=== PATIENT | male | born 1955 | race Caucasian/White ===

== ENCOUNTER → 2020-11-17 14:38 | Outpatient (BNVA) | payer MEDICARE, SELFPAY | PROVIDERS: PCP Nurse Practitioner Family; Visit Provider Hospitalist | DX: J41.8 Mixed simple and mucopurulent chronic bronchitis (principal); R91.8 Other nonspecific abnormal finding of lung field; J96.12 Chronic respiratory failure with hypercapnia | CPT/HCPCS: 99212 ==

== ENCOUNTER 2020-12-01 12:53 | Outpatient (REF) | payer MEDICARE, SELFPAY | END 2020-12-01 12:54 | disposition home or self-care (01) | LOC: HO.LAB 12:53 | PROVIDERS: Visit Provider Internal Medicine | DX: Z20.822 Contact with and (suspected) exposure to COVID-19 (principal) | CPT/HCPCS: 36415; C9803; U0003 ==

== ENCOUNTER 2021-02-05 15:18 | Outpatient (REF) | payer MEDICARE, SELFPAY ==
--- NOTE | ~2021-02-05 | CT_ITS ---
EXAMINATION: CT CHEST WITHOUT CONTRAST CLINICAL INFORMATION: Other nonspecific abnormal finding lung field COMPARISON: None TECHNIQUE: Multidetector volumetric CT imaging of the chest was done. Axial MIP volume rendering provided. Sagittal and coronal reformatted images were obtained. This CT examination was performed using dose optimization techniques as appropriate, variously including the following: *Automated exposure control *Adjustment of mA and/or kV according to patient size (this includes techniques or standardized protocols for targeted exams where dose is matched to indication/reason for exam; i.e. 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 LUNGS: There is evidence of emphysema. There is a pleural parenchymal scarring seen in the posterior segment of the right upper lobe axial image 123 series 7. There are scattered areas of bronchial wall thickening and increased peribronchial attenuation predominantly in the upper lobes suggestive of airways disease. There is a 3 mm calcified superior segment right lower lobe nodule axial image 301 series 7. There is a 3 mm noncalcified right lower lobe nodule axial image 407 series 7. MEDIASTINUM: There is coronary artery calcification. The mediastinum is otherwise normal. PLEURA: There is no pleural effusion. No pleural mass or thickening. AXILLA: No lymphadenopathy. UPPER ABDOMEN: There are small bilateral renal stones. OSSEOUS STRUCTURES: There are degenerative changes CT/CT chest wo con IMPRESSION: Emphysema. Small bilateral pulmonary nodules. Mild airways disease. Coronary artery calcification. Bilateral renal stones.
== END 2021-02-05 15:19 | disposition home or self-care (01) ==
LOC: HO.CT 15:18
PROVIDERS: PCP Nurse Practitioner Family; Visit Provider Hospitalist
DX: R91.8 Other nonspecific abnormal finding of lung field (principal)
CPT/HCPCS: 71250

== ENCOUNTER → 2021-06-12 15:39 | Outpatient (BNVA) | payer MEDICARE, SELFPAY | PROVIDERS: PCP Nurse Practitioner Family; Visit Provider Hospitalist | DX: J41.8 Mixed simple and mucopurulent chronic bronchitis (principal); J96.12 Chronic respiratory failure with hypercapnia; R91.8 Other nonspecific abnormal finding of lung field | CPT/HCPCS: 99212 ==

== ENCOUNTER → 2022-03-20 10:18 | Outpatient (BNVA) | payer MEDICARE, SELFPAY | PROVIDERS: PCP Nurse Practitioner Family; Visit Provider Hospitalist | DX: R91.8 Other nonspecific abnormal finding of lung field (principal); J96.12 Chronic respiratory failure with hypercapnia | CPT/HCPCS: 94618; 99212 ==

== ENCOUNTER 2022-05-03 06:55 | Outpatient (REF) | payer MEDICARE, SELFPAY ==
--- NOTE | ~2022-05-03 | CT_ITS ---
EXAMINATION: CT CHEST WITHOUT CONTRAST CLINICAL INFORMATION: Follow-up pulmonary nodules. COMPARISON: 02/05/2021 TECHNIQUE: Multidetector volumetric CT imaging of the chest was done. Axial MIP volume rendering provided. Sagittal and coronal reformatted images were obtained. This CT examination was performed using dose optimization techniques as appropriate, variously including the following: *Automated exposure control. *Adjustment of mA and/or kV according to patient size (this includes techniques or standardized protocols for targeted exams where dose is matched to indication/reason for exam; i.e. extremities or head). *Use of iterative reconstruction technique. DLP: 107 mGy-cm FINDINGS: LUNGS: Central airways are patent. There are mild regions of bronchial wall thickening seen centrally. No bronchiectasis is seen. Mild changes of centrilobular and paraseptal emphysema are seen bilaterally. No confluent airspace disease. There are a few scattered sub-4 mm densities present such as a 3 mm noncalcified density within the right upper lobe anteriorly on image 127 of 570 in series #7. There is a calcified granuloma seen within the right lower lobe. This is stable. Within the right lower lobe, there is a 5 mm noncalcified nodule seen on image 265 of 570. This is stable. There is a 4 mm noncalcified density seen adjacent to the right mediastinum on image 192 of 570. This is stable. There is a 5 mm noncalcified density seen within the left lower lobe on image 454 of 570. Not definitely seen on previous study but which has a linear appearance rather than nodular. MEDIASTINUM: Heart normal size. Coronary artery calcification present. No pericardial effusion. No thoracic aortic aneurysm. There is thoracic aortic arch calcified plaque present most prominent at the origin of the left subclavian artery. No mediastinal or hilar lymphadenopathy appreciated. PLEURA: There is no pleural effusion. No pleural mass or thickening. AXILLA: No lymphadenopathy. No chest wall abnormality appreciated. UPPER ABDOMEN: There is bilateral nephrolithiasis. OSSEOUS STRUCTURES: Subchondral cyst formation is seen involving the right glenoid. No suspicious-appearing destructive bony lesions identified. CT/CT chest wo con IMPRESSION: 1. Essentially stable appearance compared to study of 02/05/2021 other than for a small density within the left lower lung which has a linear appearance and not of a rounded nodule. 2. Old granulomatous disease. 3. Bilateral nephrolithiasis. According to the UPDATED 2017 Fleischner Society recommendations, the advised follow-up imaging for solid nodules < 6 mm is: LOW RISK PATIENT: No routine follow-up. HIGH RISK PATIENT: Optional CT at 12 months.
== END 2022-05-03 06:56 | disposition home or self-care (01) ==
LOC: HO.CT 06:55
PROVIDERS: Visit Provider Hospitalist
DX: R91.8 Other nonspecific abnormal finding of lung field (principal)
CPT/HCPCS: 71250

== ENCOUNTER → 2022-06-28 08:46 | Outpatient (BNVA) | payer MEDICARE, SELFPAY | PROVIDERS: PCP Nurse Practitioner Family; Visit Provider Hospitalist | DX: J41.8 Mixed simple and mucopurulent chronic bronchitis (principal); R91.8 Other nonspecific abnormal finding of lung field; J96.12 Chronic respiratory failure with hypercapnia | CPT/HCPCS: 99212 ==

== ENCOUNTER → 2023-01-03 08:35 | Outpatient (BNVA) | payer MEDICARE, SELFPAY | PROVIDERS: PCP Nurse Practitioner Family; Visit Provider Hospitalist | DX: J41.8 Mixed simple and mucopurulent chronic bronchitis (principal); R91.8 Other nonspecific abnormal finding of lung field; J96.12 Chronic respiratory failure with hypercapnia | CPT/HCPCS: 99212 ==

== ENCOUNTER 2023-09-24 14:56 | Outpatient (REF) | payer MEDICARE, SELFPAY ==
--- NOTE | ~2023-09-24 | CT_ITS ---
EXAMINATION: CT CHEST WITHOUT CONTRAST CLINICAL INFORMATION: Pulmonary nodules COMPARISON: 05/03/2022, 12/07/2020 TECHNIQUE: Multidetector volumetric CT imaging of the chest was done. Axial MIP volume rendering provided. Sagittal and coronal reformatted images were obtained. This CT examination was performed using dose optimization techniques as appropriate, variously including the following: *Automated exposure control *Adjustment of mA and/or kV according to patient size (this includes techniques or standardized protocols for targeted exams where dose is matched to indication/reason for exam; i.e. 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 Left base atelectasis. LUNGS: Trachea and bronchi are patent. Mild bronchial wall thickening. Emphysema/hyperinflation. Interval development of confluent, branching left lower lobe opacities extending to the pleural surfaces. Stable 3 mm anterior RUL nodule, 5:152. No change 3 mm medial RUL adjacent to the mediastinum, 5:231. Stable 4 mm RLL nodule, 5:317. MEDIASTINUM: Unremarkable thyroid. No pathologic lymphadenopathy. Heart size within normal limits. No pericardial effusion. Atherosclerotic calcifications nonaneurysmal aorta. Extensive calcifications at the origin of the left subclavian artery. CORONARY ARTERY CALCIFICATION: Severe PLEURA: There is no pleural effusion. No pleural mass or thickening. AXILLA: No lymphadenopathy. UPPER ABDOMEN: 3 mm nonobstructing left upper pole renal calculus. OSSEOUS STRUCTURES: No suspicious osseous lesions. Right glenoid cystic changes again seen. CT/CT chest wo IV con IMPRESSION: Stable emphysema and lung nodules, none larger than 4 mm. Interval development of branching confluent opacities in the left lower lobe, likely atelectasis. Six-month follow-up CT recommended. Extensive calcifications origin left subclavian artery, hemodynamically significant stenosis not excluded. Correlate with upper extremity blood pressure measurements and evaluate clinically for possible left subclavian steal syndrome. Fleischner guidelines were followed.
== END 2023-09-24 14:57 | disposition home or self-care (01) ==
LOC: HO.CT 14:56
PROVIDERS: PCP Internal Medicine; Visit Provider Hospitalist
DX: R91.8 Other nonspecific abnormal finding of lung field (principal)
CPT/HCPCS: 71250

== ENCOUNTER 2023-11-28 15:20 | Outpatient (AMB) | payer MEDICARE, SELFPAY ==
[2023-11-28 15:28] VITALS: PULSE 79; O2SAT 95; BMI 21.3
--- NOTE | 2023-11-28 15:28 | A.OFFVIS_ITS ---
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 He has been smoke-free now for about 25 years. We initially had sent him to the lung cancer screening program but he did not qualify. At this point the patient has not had any recent imaging studies for the pulmonary nodules. Therefore, I will request a CT scan of the chest to be done where he prefers which is set the last place he had his scan. In the meantime he continues to use respiratory therapy. He has not had to use his rescue inhaler. He has not had any flares or needing prednisone. He continues to stay active. The patient is without any other complaints. Hospitalized at [facility] with influenza a in addition to a COPD exacerbation. He did have a chest x-ray that was okay. He did have a blood gas done on 3 L with a pH 7.36 but a pCO2 of 56 cm of water suggesting chronic hypercarbic respiratory failure. He was able to be discharged any went to rehab. Now he is doing okay. Does have shortness of breath with activity. Moderate severity. Denies any significant coughing at this time. He quit smoking completely. 01/03/2023 the patient is here for a pulmo nary follow-up visit. The patient co ntinues to do well. He has been using the Symbicort with good effect. He has also been using the Combivent. He does not have to use her rescue inhaler as needed that works very well for him. He continues to be on 5 mg of prednisone. I did emphasize importance of trying to cut down in the will try to cut down to 5 mg every other day. His last CT scan of the chest was back in May 2021 demonstrating stable pulmonary nodules. Will plan to repeat the CT scan in the fall of 2022 otherwise will follow-up then. If the patient develops any issues prior to that he is to call for an evaluation. 11/28/2023 the patient is here for a pulmonary follow-up visit. He has not been able to get off the prednisone. Continues complain of a productive cough chest congestion. Moderate severity. Also chest tightness and shortness of breath. His respiratory therapy has been helpful although he has been on chronic prednisone. Continues on 10 mg per he did try going down 7.5 but he could not tolerated. He will try to alternate 7.5 and 10 mg. he continues uses respiratory therapy. Unfortunately, the patient continues to struggle with smoking. Back in September the patient did undergo a CT scan of the chest which was personally by me. Appears that he has the stable pulmonary nodules although he does have a left lower lobe nodular density greater than cm the recommendation was to follow-up with a CT scan in 3 months. Will go ahead and plan to follow-up with a CT scan the springtime. In the meantime he is going to continue with respiratory therapy and continue with smoking cessation. [facility] Medical History (Updated 06/25/22 @ 13:55 by Rizwana Kang PA-C) Former smoker, stopped smoking in distant past Chronic respiratory failure Pulmonary nodules COPD (chronic obstructive pulmonary disease) Social History (Updated 06/12/21 @ 15:50 by AI Friedman) Patient Tobacco Use Status: Former Tobacco user Tobacco use type: Cigarette Years Smoked: 25 Years Review of Systems Const Denies night sweats and Reports weight loss ENT Denies change in voice, Denies lip swelling, Denies mouth pain, Reports nasal congestion, Reports nasal discharge and Denies tongue swelling Card Denies chest pain and Reports dyspnea on exertion Resp Reports cough and Reports dyspnea on exertion GI Denies abdominal pain Musc Denies no additional complaints Neuro Denies Neuro-related abnormal movements Psych Denies no additional complaints Geovanni/Lymph Denies easy bleeding and Denies lymphadenopathy Aller/Immun Denies lip swelling and Denies tongue swelling Physical Exam Vital Signs: Last Vital Signs Pulse 79 11/28/23 15:28 Pulse Ox 95 11/28/23 15:28 Oxygen Delivery Method Room Air 11/28/23 15:28 BMI result Body Mass Index 21.3 Const General: alert HEENT General nose exam: Abnormal external nose present and Nasal discharge present Eyes Pupils: Equal, round and reactive pupils present Neck Neck: Yes normal visual inspection, Yes full ROM and Yes no lymphadenopathy Chest Chest palpation & inspection: normal inspection of the chest Resp Effort & Inspection: normal respiratory effort Auscultation: rhonchi and diminished lung sounds Cardio Rate: regular rate Rhythm: regular rhythm Heart sounds: S1 normal heart sound present and S2 normal heart sound present GI Palpation (GI): Soft to palpation and nontender Auscultation: normal bowel sounds General: Yes no CVA tenderness Back/Spine/Pelvis Back: no CVA tenderness Skin General skin exam: rashes and/or lesions noted Neuro Cranial nerves: Yes Equal, round and reactive pupils present Results Reviewed Results Reviewed: [address] [address] [address] Scan Report Signed Patient: Luis Daniel Bunch MR#: [id number] : 1955 Acct:[id number] Age/Sex: 68 / M ADM Date: 09/24/23 Loc: HO.CT Attending Dr: Seamus Arndt MD Ordering Physician: Seamus Arndt MD Date of Service: 09/24/23 Procedure(s): CT chest wo IV con Accession Number(s): [id number] cc: Rosa Dinh MD; Seamus Arndt MD~ EXAMINATION: CT CHEST WITHOUT CONTRAST CLINICAL INFORMATION: Pulmonary nodules COMPARISON: 05/03/2022, 12/07/2020 TECHNIQUE: Multidetector volumetric CT imaging of the chest was done. Axial MIP volume rendering provided. Sagittal and coronal reformatted images were obtained. This CT examination was performed using dose optimization techniques as appropriate, variously including the following: *Automated exposure control *Adjustment of mA and/or kV according to patient size (this includes techniques or standardized protocols for targeted exams where dose is matched to indication/reason for exam; i.e. 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 Left base atelectasis. LUNGS: Trachea and bronchi are patent. Mild bronchial wall thickening. Emphysema/hyperinflation. Interval development of confluent, branching left lower lobe opacities extending to the pleural surfaces. Stable 3 mm anterior RUL nodule, 5:152. No change 3 mm medial RUL adjacent to the mediastinum, 5:231. Stable 4 mm RLL nodule, 5:317. MEDIASTINUM: Unremarkable thyroid. No pathologic lymphadenopathy. Heart size within normal limits. No pericardial effusion. Atherosclerotic calcifications nonaneurysmal aorta. Extensive calcifications at the origin of the left subclavian artery. CORONARY ARTERY CALCIFICATION: Severe PLEURA: There is no pleural effusion. No pleural mass or thickening. AXILLA: No lymphadenopathy. UPPER ABDOMEN: 3 mm nonobstructing left upper pole renal calculus. OSSEOUS STRUCTURES: No suspicious osseous lesions. Right glenoid cystic changes again seen. CT/CT chest wo IV con IMPRESSION: Stable emphysema and lung nodules, none larger than 4 mm. Interval development of branching confluent opacities in the left lower lobe, likely atelectasis. Six-month follow-up CT recommended. Extensive calcifications origin left subclavian artery, hemodynamically significant stenosis not excluded. Correlate with upper extremity blood pressure measurements and evaluate clinically for possible left subclavian steal syndrome. Fleischner guidelines were followed. Dictated By: Maria Ines Martinez MD Signed By: <Electronically signed by Maria Ines Martinez MD in OV> 10/04/23 1157 DD/ 1546 TD/TT: Community Service Technician: Assessment & Plan Assessment & Plan (1) COPD (chronic obstructive pulmonary disease): Code(s): J44.9 - Chronic obstructive pulmonary disease, unspecified Qualifiers: COPD type: chronic bronchitis Chronic bronchitis type: mixed simple and mucopurulent Qualified Code(s): J41.8 - Mixed simple and mucopurulent chronic bronchitis Plan: Optimize therapy with Trelegy (2) Pulmonary nodules: Code(s): R91.8 - Other nonspecific abnormal finding of lung field Plan: Repeat CT scan of the chest prior to next visit (3) Chronic respiratory failure: Code(s): J96.10 - Chronic respiratory failure, unspecified whether with hypoxia or hypercapnia Qualifiers: Respiratory failure complication: hypercapnia Qualified Code(s): J96.12 - Chronic respiratory failure with hypercapnia Plan: Continue to reassess her at this point does not need noninvasive therapy Plan Continue Symbicort twice a day Combivent 4 times a day continue prednisone, slow taper to 7.5 mg daily, Nebulizer CT chest 03/26 F/U 4-6 months Orders: Orders CT chest wo IV con 04/02/24 R91.8 - Other nonspecific abnormal finding of lung field Medications: New arformoterol (Brovana) 2 mL inhalation Q12H 30 days 120 mL 11RF J44.9 - Chronic obstructive pulmonary disease, unspecified, R91.8 - Other nonspecific abnormal finding of lung field budesonide 0.5 mg (2 mL) inhalation BID 30 days 120 mL 11RF J44.9 - Chronic obstructive pulmonary disease, unspecified, R91.8 - Other nonspecific abnormal finding of lung field Coding Level of Care Code Est Pt Level 4 (59863) Diagnoses Mixed simple and mucopurulent chronic bronchitis J41.8 COPD type: chronic bronchitis Chronic bronchitis type: mixed simple and mucopurulent Pulmonary nodules R91.8 Chronic respiratory failure with hypercapnia J96.12 Respiratory failure complication: hypercapnia Time Spent (min) 17
== END 2023-11-28 15:49 | disposition home or self-care (01) ==
PROVIDERS: PCP Internal Medicine; Visit Provider Hospitalist
DX: J41.8 Mixed simple and mucopurulent chronic bronchitis (principal); R91.8 Other nonspecific abnormal finding of lung field; J96.12 Chronic respiratory failure with hypercapnia
CPT/HCPCS: 99214

== ENCOUNTER → 2023-11-28 15:20 | Outpatient (BNVA) | payer MEDICARE, SELFPAY | PROVIDERS: PCP Internal Medicine; Visit Provider Hospitalist | DX: J41.8 Mixed simple and mucopurulent chronic bronchitis (principal); J96.12 Chronic respiratory failure with hypercapnia; R91.8 Other nonspecific abnormal finding of lung field; Z79.52 Long term (current) use of systemic steroids; Z79.899 Other long term (current) drug therapy | CPT/HCPCS: 99212 ==

== ENCOUNTER 2024-04-02 12:36 | Outpatient (REF) | payer MEDICARE, SELFPAY ==
--- NOTE | ~2024-04-02 | CT_ITS ---
EXAMINATION: CT CHEST WITHOUT CONTRAST CLINICAL INFORMATION: Pulmonary nodule. COMPARISON: Yearly CT scan since 2020 most recently 09/24/2023: Interval development of branching confluent opacities in the left lower lobe, likely atelectasis. Six-month follow-up CT recommended. TECHNIQUE: Multidetector volumetric CT imaging of the chest was done. Axial MIP volume rendering provided. Sagittal and coronal reformatted images were obtained. This CT examination was performed using dose optimization techniques as appropriate, variously including the following: *Automated exposure control *Adjustment of mA and/or kV according to patient size (this includes techniques or standardized protocols for targeted exams where dose is matched to indication/reason for exam; i.e. extremities or head) *Use of iterative reconstruction technique DLP: 91 mGy-cm FINDINGS: LUNGS: Moderate emphysema is present along with bronchial thickening. Some mucus stranding and retained secretions are present in the trachea and mainstem bronchi, new since prior. Some small pulmonary nodular densities are seen and unchanged with stoner images saved of all. The largest is somewhat triangular in shape measuring 6 mm in greatest dimension (5:248 compare prior 5:318). No new, increasing sized or concerning pulmonary nodular densities seen. The previously seen newly developed branching left lower lobe opacities are again seen and are suggestive of atelectasis. The maximal thickness of this band-like density has decreased from 0.5 cm to 0.3 cm (prior 7:24 compare 8:22). There is some new atelectasis seen at the right lung base medially (5:444). MEDIASTINUM: The mediastinum is normal. CORONARY ARTERY CALCIFICATION: Marked. PLEURA: There is no pleural effusion. No pleural mass or thickening. AXILLA: No lymphadenopathy. UPPER ABDOMEN: There is a nonobstructing 3 mm calculus in the left upper pole. OSSEOUS STRUCTURES: Unremarkable. Degenerative changes are present throughout the spine. CT/CT chest wo IV con IMPRESSION: 1. Moderate emphysema with bronchial thickening and mucus stranding in the trachea and mainstem bronchi. 2. Stable small pulmonary nodules. 3. Previously seen branching left lower lobe opacities are again seen and are suggestive of atelectasis, decreased in thickness. 4. New atelectasis right lung base. 5. Incidental note made of nonobstructing left renal calculus and marked coronary artery calcification. Fleischner guidelines were followed.
== END 2024-04-02 12:37 | disposition home or self-care (01) ==
LOC: HO.CT 12:36
PROVIDERS: Visit Provider Hospitalist
DX: R91.8 Other nonspecific abnormal finding of lung field (principal)
CPT/HCPCS: 71250

== ENCOUNTER 2024-05-14 09:38 | Outpatient (AMB) | payer MEDICARE, SELFPAY ==
[2024-05-14 09:45] VITALS: BP 134/70; PULSE 89; O2SAT 97; BMI 19.8
--- NOTE | 2024-05-14 09:45 | A.OFFVIS_ITS ---
Vital Signs 05/14/24 09:45 Height 5 ft 8 in Weight 130 lb BMI 19.8 BP 134/70 Blood Pressure Location Rt brachial Position Sitting Pulse 89 Pulse Source Pulse Oximeter Pulse Oximetry (%) 97 Oxygen Delivery Method Room Air Intake Visit Reasons: COPD Ward Attendant Required: No Allergies amoxicillin Allergy (Severe, Verified 05/14/24 09:48) Itching oxycodone [OxyContin] Allergy (Severe, Verified 05/14/24 09:48) Hives Penicillins Allergy (Severe, Uncoded 05/14/24 09:48) Hives HPI Comments Details: The patient is a 69-year-old gentleman known COPD in addition to pulmonary nodules. He has been smoke-free now for about 25 years. We initially had sent him to the lung cancer screening program but he did not qualify. At this point the patient has not had any recent imaging studies for the pulmonary nodules. Therefore, I will request a CT scan of the chest to be done where he prefers which is set the last place he had his scan. In the meantime he continues to use respiratory therapy. He has not had to use his rescue inhaler. He has not had any flares or needing prednisone. He continues to stay active. The patient is without any other complaints. Hospitalized at [facility] with influenza a in addition to a COPD exacerbation. He did have a chest x-ray that was okay. He did have a blood gas done on 3 L with a pH 7.36 but a pCO2 of 56 cm of water suggesting chronic hypercarbic respiratory failure. He was able to be discharged any went to rehab. Now he is doing okay. Does have shortness of breath with activity. Moderate severity. Denies any significant coughing at this time. He quit smoking completely. 01/03/2023 the patient is here for a pulmonary follow-up visit. The patient continues to do well. He has been using the Symbicort with good effect. He has also been using the Combivent. He does not have to use her rescue inhaler as needed that works very well for him. He continues to be on 5 mg of prednisone. I did emphasize importance of trying to cut down in the will try to cut down to 5 mg every other day. His last CT scan of the chest was back in May 2021 demonstrating stable pulmonary nodules. Will plan to repeat the CT scan in the fall of 2022 otherwise will follow-up then. If the patient develops any issues prior to that he is to call for an evaluation. 11/28/2023 the patient is here for a pulmonary follow-up visit. He has not been able to get off the prednisone. Continues complain of a productive cough chest congestion. Moderate severity. Also chest tightness and shortness of breath. His respiratory therapy has been helpful although he has been on chronic prednisone. Continues on 10 mg per he did try going down 7.5 but he co uld not tolerated. He will try to alternate 7.5 and 10 mg. he continues uses respiratory therapy. Unfortunately, the patient continues to struggle with smoking. Back in September the patient did undergo a CT scan of the chest which was personally by me. Appears that he has the stable pulmonary nodules although he does have a left lower lobe nodular density greater than cm the recommendation was to follow-up with a CT scan in 3 months. Will go ahead and plan to follow-up with a CT scan the springtime. In the meantime he is going to continue with respiratory therapy and continue with smoking cessation. 05/14/2024 the patient is here for a pulmonary follow-up visit. Overall he is doing fair for respiratory status. He is significantly stressed because his significant other is very ill. She recently had a BKA has some complications after that. He also continues to smoke cigarettes specially with the additional stress that he has in his life he has has a hard time quitting. He does continue to use his respiratory medications as prescribed. He has Symbicort and Combivent. He also uses the nebulizer frequently. Unfortunately continues use prednisone as well because of the significant wheezing and chest tightness. He has been trying to cut down but lately he has not been able to do so and is currently taking 10 mg daily. He understands the side effects and potential risks and thinking prednisone. At this point the patient has been on for some time and likely dependent on it. He will continue with respiratory therapy still encourage him to quit smoking. He did have a CT scan of the chest to the lung cancer screening program sometime in 03/22/2024 which we personally reviewed demonstrating stable pulmonary nodules and emphysema. He does have a small kidney stone but she will not be an issue since is only 3 mm in size. [facility] Medical History (Updated 06/25/22 @ 13:55 by Rizwana Kang PA-C) Former smoker, stopped smoking in distant past Chronic respiratory failure Pulmonary nodules COPD (chronic obstructive pulmonary disease) Social History (Updated 06/12/21 @ 15:50 by AI Friedman) Patient Tobacco Use Status: Former Tobacco user Tobacco use type: Cigarette Years Smoked: 25 Years Review of Systems Const Denies night sweats and Reports weight loss ENT Denies change in voice, Denies lip swelling, Denies mouth pain, Reports nasal congestion, Reports nasal discharge and Denies tongue swelling Card Denies chest pain and Reports dyspnea on exertion Resp Reports cough and Reports dyspnea on exertion GI Denies abdominal pain Musc Denies no additional complaints Neuro Denies Neuro-related abnormal movements Psych Denies no additional complaints Geovanni/Lymph Denies easy bleeding and Denies lymphadenopathy Aller/Immun Denies lip swelling and Denies tongue swelling Physical Exam Vital Signs: Last Vital Signs Pulse 89 05/14/24 09:45 BP 134/70 05/14/24 09:45 Pulse Ox 97 05/14/24 09:45 Oxygen Delivery Method Room Air 05/14/24 09:45 BMI result Body Mass Index 19.8 Const General: alert HEENT General nose exam: Abnormal external nose present and Nasal discharge present Eyes Pupils: Equal, round and reactive pupils present Neck Neck: Yes normal visual inspection, Yes full ROM and Yes no lymphadenopathy Chest Chest palpation & inspection: normal inspection of the chest Resp Effort & Inspection: normal respiratory effort and prolonged expiratory phase Auscultation: diminished lung sounds Cardio Rate: regular rate Rhythm: regular rhythm Heart sounds: S1 normal heart sound present and S2 normal heart sound present GI Palpation (GI): Soft to palpation and nontender Auscultation: normal bowel sounds General: Yes no CVA tenderness Back/Spine/Pelvis Back: no CVA tenderness Skin General skin exam: rashes and/or lesions noted Neuro Cranial nerves: Yes Equal, round and reactive pupils present Assessment & Plan Assessment & Plan (1) COPD (chronic obstructive pulmonary disease): Code(s): J44.9 - Chronic obstructive pulmonary disease, unspecified Category: Medical Qualifiers: COPD type: chronic bronchitis Chronic bronchitis type: mixed simple and mucopurulent Qualified Code(s): J41.8 - Mixed simple and mucopurulent chronic bronchitis Plan: Optimize therapy with Trelegy (2) Pulmonary nodules: Code(s): R91.8 - Other nonspecific abnormal finding of lung field Category: Medical Plan: Repeat CT scan of the chest prior to next visit (3) Chronic respiratory failure: Code(s): J96.10 - Chronic respiratory failure, unspecified whether with hypoxia or hypercapnia Category: Medical Qualifiers: Respiratory failure complication: hypercapnia Qualified Code(s): J96.12 - Chronic respiratory failure with hypercapnia Plan: Continue to reassess her at this point does not need noninvasive therapy Plan Continue Symbicort twice a day Combivent 4 times a day continue prednisone, slow taper to 7.5 mg daily, Nebulizer CT chest 03/27 F/U 6 months Medications: New ipratropium-albuterol 20-100 mcg/actuation (Combivent Respimat) space evenly during waking hours 1 puff inhalation QID 4 grams 11RF 30 days prednisone 10 mg (2 x 5 mg) PO DAILY 180 tabs 3RF 90 days Changed From Symbicort 160-4.5 mcg/actuation (budesonide-formoterol) 2 puffs PO BID 10.2 grams 0RF NS To Symbicort 160-4.5 mcg/actuation (budesonide-formoterol) 2 puffs PO BID 10.2 grams 11RF 30 days NS Refilled ipratropium-albuterol 0.5 mg-3 mg(2.5 mg base)/3 mL 3 mL inhalation QID 360 mL 11RF 30 days J41.8 - Mixed simple and mucopurulent chronic bronchitis Coding Level of Care Code Est Pt Level 4 (11216) Diagnoses Mixed simple and mucopurulent chronic bronchitis J41.8 COPD type: chronic bronchitis Chronic bronchitis type: mixed simple and mucopurulent Pulmonary nodules R91.8 Chronic respiratory failure with hypercapnia J96.12 Respiratory failure complication: hypercapnia Time Spent (min) 16
== END 2024-05-14 10:24 | disposition home or self-care (01) ==
PROVIDERS: PCP Internal Medicine; Visit Provider Hospitalist
DX: J41.8 Mixed simple and mucopurulent chronic bronchitis (principal); R91.8 Other nonspecific abnormal finding of lung field; J96.12 Chronic respiratory failure with hypercapnia
CPT/HCPCS: 99214

== ENCOUNTER → 2024-05-14 09:38 | Outpatient (BNVA) | payer MEDICARE, SELFPAY | PROVIDERS: PCP Internal Medicine; Visit Provider Hospitalist | DX: R91.8 Other nonspecific abnormal finding of lung field (principal); J41.8 Mixed simple and mucopurulent chronic bronchitis; J96.12 Chronic respiratory failure with hypercapnia | CPT/HCPCS: 99212 ==